=== PATIENT | female | born 1940 | race Caucasian/White ===

== ENCOUNTER → 2017-10-19 | Outpatient (CLI) | payer MEDICARE, OTHER ==
[2017-10-21 14:38] LABS: Stool Occult Bld Immuno 1 Negative (NEGATIVE); Stool Occult Bld Immuno 2 Negative (NEGATIVE); Stool Occult Bld Immuno 3 Negative (NEGATIVE)
== END ==
LOC: LAB SHORT 06:40
PROVIDERS: Physician Assistant Medical
DX: I10 Essential (primary) hypertension (principal); E78.4 Other hyperlipidemia; E11.51 Type 2 diabetes mellitus with diabetic peripheral angiopathy without gangrene; R53.83 Other fatigue; E03.8 Other specified hypothyroidism
CPT/HCPCS: 82274

== ENCOUNTER → 2017-12-18 | Outpatient (CLI) | payer MEDICARE, OTHER | LOC: LAB 18:08 → LAB SHORT 18:08 | DX: J40 Bronchitis, not specified as acute or chronic (principal) | CPT/HCPCS: 87070; 87205 ==

== ENCOUNTER 2021-09-30 22:13 | Inpatient (IN) | payer MEDICARE, OTHER ==
[~2021-09-30] VITALS: Ht 154.9 cm; Wt 65.8 kg
[2021-09-30 23:14] LABS: BASOPHILS ABSOLUTE AUTO 0.03 K/mm3 (0.00-0.23); BASOPHILS PERCENT AUTO 0 % (0-2); EOSINOPHILS ABSOLUTE AUTO 0.02 K/mm3 (0.00-0.68); EOSINOPHILS PERCENT AUTO 0 % (0-6); Hematocrit 34.7 % (33.0-51.0); Hemoglobin 11.6 g/dL (11.5-16.0); IMMATURE GRAN ABSOLUTE AUTO 0.04 K/mm3 (0.00-0.10); IMMATURE GRAN PERCENT AUTO 0 % (0-1); LYMPHOCYTES PERCENT AUTO 7 % (21-46); MONOCYTES ABSOLUTE AUTO 0.68 K/mm3 (0.16-1.47); MONOCYTES PERCENT AUTO 4 % (4-13); Mean Corpuscular HGB 26.5 pg (26.0-34.0); Mean Corpuscular HGB Conc 33.4 g/dL (31.5-36.5); Mean Corpuscular Volume 79 fL (80-100); Mean Platelet Volume 10.3 fL (9.1-12.4); NEUTROPHILS ABSOLUTE AUTO 14.62 K/mm3 (1.96-9.15); NEUTROPHILS PERCENT AUTO 89 % (41-73); Platelet Count 489 K/mm3 (150-400); RDW Coefficient Variation 13.3 % (11.7-14.2); RDW Standard Deviation 38.3 fL (35.1-46.3); Red Blood Cell Count 4.38 M/mm3 (3.80-5.20); White Blood Cell Count 16.49 K/mm3 (4.00-11.30)
[2021-09-30 23:38] LABS: Alanine Aminotransfer (ALT/SGP 13 U/L (12-78); Albumin, Blood 3.5 g/dL (3.4-5.0); Albumin/Globulin Ratio 0.9 (0.8-1.8); Alk Phos 97 U/L (50-136); Anion Gap 11 mmol/L (6-16); Aspartate Aminotrans (AST/SGOT 18 U/L (12-37); Bilirubin, Total 0.4 mg/dL (0.1-1.0); Blood Urea Nitrogen 13 mg/dL (8-24); Bun/Creatinine Ratio 15.8 (12.0-20.0); CO2, Blood 26 mmol/L (21-32); Calcium, Blood 9.5 mg/dL (8.5-10.1); Chloride, Blood 92 mmol/L (98-108); Creatinine, Blood 0.82 mg/dL (0.40-1.00); Glomerular Filtration Rate >60 (60-); Glucose, Blood 494 mg/dL (70-99); Potassium, Blood 3.6 mmol/L (3.5-5.5); Sodium, Blood 129 mmol/L (136-145); Total Protein, Blood 7.5 g/dL (6.4-8.2); Troponin I 0.587 ng/mL (0.000-0.040)
[2021-10-01] LABS: D-Dimer, Quantitative 0.35 mg/L FEU (0.00-0.52)
[2021-10-01 00:06] LABS: Anti-Xa UFH, PHA Monitoring <0.10 IU/mL; International Normalized Ratio 0.96; Prothrombin Time Results 10.1 Sec (9.7-11.5)
[2021-10-01] MEDS ORDERED: METO50 PO (00:33)
[2021-10-01] MEDS ORDERED: BASAGLAR K100 UNIT/3 SC (00:33)
[2021-10-01] MEDS ORDERED: METFORMIN HCL500 M2 PO (00:33)
[2021-10-01] MEDS ORDERED: EUTHYROX75 MC1 PO (00:33)
[2021-10-01] MEDS ORDERED: ATOR40TA PO (00:34)
[2021-10-01] MEDS ORDERED: XARELTO20 MG PO (00:34)
[2021-10-01] MEDS ORDERED: AMLODIPINE BESYL5 MG PO (00:34)
[2021-10-01] MEDS ORDERED: Namenda5 MG PO (00:34)
[2021-10-01] MEDS ORDERED: FUROSEMIDE20 MG PO (00:34)
[2021-10-01] MEDS ORDERED: PIOGLITAZONE HC15 MG PO (00:34)
[2021-10-01] MEDS ORDERED: HYDROCHLOROTH12.5 MG PO (00:35)
--- NOTE | 2021-10-01 02:32 | NUR ---
CALLED DR GOODWIN REGARDING CBG OF 419. FURTHER ORDERS ARE TO GIVE DOSE OF INSULIN ACCORDING TO SLIDING SCALE, NOW.
--- NOTE | 2021-10-01 03:23 | NUR ---
UPDATE PHYSICIAN NOTIFIED OF PT'SCBG AT 419. ORDERS PROVIDED, SEE EMAR. PT'S UPDATED PER PT REQUEST. WILL CONT TO MONITOR UNTIL REPORT GIVEN TO NIGHTSHIFT RN.
--- NOTE | 2021-10-01 03:27 | NUR ---
UPDATE PHYSICIAN NOTIFIED OF PT'S HIGH CBG LEVEL OF 419. ORDERS PROVIDED, SEE EMAR.PT'S UPDATED PER PT REQUEST.
--- NOTE | 2021-10-01 05:25 | NUR ---
SHIFT SUMMARY PT ALERT AND ORIENTED. CONFUSED AT TIMES. PT UNABLE TO RECALL MEDICAL HX OR MEDICATIONS. PT SBA TO COMMODE. HR STABLE. BP HYPERTENSIVE. STABLE AT THIS TIME SYSTOLIC BP UNDER 160. PT ABLE TO TURN SELF IN BED. HEPARIN GTT, SEE EMAR. PT REPORTS CP ONE TIME, MEDICATED, SEE EMAR. PT FROILAN STATES SHE HAS NO CP OR PRESSURE. CARDIOLOGY CONSULT PLACED. OXYGEN SATURATION MAINTAINED ABOVE 92% ON RA. COVID SWAB SENT TO LAB. BED ALARM IN PLACE FOR PT SAFETY. AT 0515 THIS RN ASSISTED PT TO COMMODE. L PUPIL A 6 AND NONREACTIVE TO LIGHT, R PUPIL A 3 AND NON-REACTIVE TO LIGHT. PHYSICIAN NOTIFIED, INSTRUCTED TO CONT TO MONITOR. PT REPORTS NO MCDONALD. NEURO CHECK PERFORMED AT PT HAS EQUAL MANAGER GOVERNMENT STRENGTH. WILL CONTINUE TO MONITOR UNTIL REPORT GIVEN TO DAYSHIFT RN.
[2021-10-01 06:47] LABS: Influenza A, PCR NEGATIVE (NEGATIVE); Influenza B, PCR NEGATIVE (NEGATIVE); Resp Syncytial Virus, PCR NEGATIVE (NEGATIVE)
[2021-10-01 06:51] LABS: SARS-Cov-2 (COVID-19) PCR, MMC POSITIVE (NEGATIVE)
[2021-10-01 07:26] LABS: BASOPHILS ABSOLUTE AUTO 0.04 K/mm3 (0.00-0.23); BASOPHILS PERCENT AUTO 0 % (0-2); EOSINOPHILS ABSOLUTE AUTO 0.08 K/mm3 (0.00-0.68); EOSINOPHILS PERCENT AUTO 1 % (0-6); Hematocrit 33.7 % (33.0-51.0); IMMATURE GRAN ABSOLUTE AUTO 0.03 K/mm3 (0.00-0.10); IMMATURE GRAN PERCENT AUTO 0 % (0-1); LYMPHOCYTES ABSOLUTE AUTO 2.76 K/mm3 (0.84-5.20); LYMPHOCYTES PERCENT AUTO 26 % (21-46); MONOCYTES ABSOLUTE AUTO 0.81 K/mm3 (0.16-1.47); MONOCYTES PERCENT AUTO 8 % (4-13); Mean Corpuscular HGB 26.8 pg (26.0-34.0); Mean Corpuscular HGB Conc 32.6 g/dL (31.5-36.5); Mean Corpuscular Volume 82 fL (80-100); NEUTROPHILS ABSOLUTE AUTO 7.04 K/mm3 (1.96-9.15); NEUTROPHILS PERCENT AUTO 65 % (41-73); Platelet Count 408 K/mm3 (150-400); RDW Coefficient Variation 13.4 % (11.7-14.2); RDW Standard Deviation 40.1 fL (35.1-46.3); White Blood Cell Count 10.76 K/mm3 (4.00-11.30)
[2021-10-01 08:05] LABS: Alanine Aminotransfer (ALT/SGP 15 U/L (12-78); Albumin, Blood 3.2 g/dL (3.4-5.0); Albumin/Globulin Ratio 0.9 (0.8-1.8); Alk Phos 89 U/L (50-136); Anion Gap 8 mmol/L (6-16); Aspartate Aminotrans (AST/SGOT 49 U/L (12-37); Bilirubin, Total 0.4 mg/dL (0.1-1.0); Blood Urea Nitrogen 12 mg/dL (8-24); Bun/Creatinine Ratio 16.8 (12.0-20.0); CO2, Blood 27 mmol/L (21-32); CPK Creatine Kinase 293 U/L (26-193); Calcium, Blood 9.6 mg/dL (8.5-10.1); Chloride, Blood 99 mmol/L (98-108); Creatinine, Blood 0.71 mg/dL (0.40-1.00); Globulin, Blood 3.6 g/dL (2.2-4.0); Glomerular Filtration Rate >60 (60-); Glucose, Blood 260 mg/dL (70-99); Potassium, Blood 3.5 mmol/L (3.5-5.5); Sodium, Blood 134 mmol/L (136-145); Total Protein, Blood 6.8 g/dL (6.4-8.2)
[2021-10-01 09:25] LABS: Creatine Kinase MB 29.2 ng/mL (0.0-3.6)
--- NOTE | 2021-10-01 10:23 | NUR ---
CARE NOTE DR MALHOTRA REACHED, ORDER GIVEN TO STOP HEPARIN DRIP. PHARMACY NOTIFIED THAT HEPARIN WAS TURNED OFF AT APPROX. 1020. WHEN IN ROOM PT CONTINUED TO DENY FEELING OF CHEST PAIN/PRESSURE. WILL CONTINUE TO MONITOR.
[2021-10-01 16:34] LABS: Troponin I 10.3 ng/mL (0.000-0.040)
[2021-10-01 16:51] LABS: Creatine Kinase MB 18.5 ng/mL (0.0-3.6); Creatine Kinase MB Index 7.9 (0.0-4.0)
--- NOTE | 2021-10-01 17:48 | NUR ---
SHIFT SUMMARY THIS AM PT WAS ALERT TO SELF, PLACE, TIME, AND SITUATION. SHE ALSO UTILIZED HER CALL LIGHT APPROPRIATELY AND ANSWERRED QUESTIONS APPROPRIATELY BUT THIS AFTERNOON PT WAS FOUND OUTSIDE OF HER ROOM BY CARLOS THOMAS RN. PATIENT HAD PULLED OUT HER IV AND STATED THAT SHE DID NOT KNOW WHERE SHE WAS. BED ALARM NOW ON. RIGHT PUPIL HAS REMAINED AT A 3 AND IS SLUGGISH, LEFT PUPIL IS A [address] GUADALUPE MADE AWARE. SPO2 MAINTAINS AT 100% VIA RA AND VITAL SIGNS STABLE. HEPARIN DRIP IS NOW INFUSING PER EMAR ORDERS AT 16 UNITS/KG/HR IN LEFT POWERGLIDE. SHE IS ABLE TO AMBULATE A SBA TO MANAGE LINES/CORDS TO BATHROOM. NO CARDIAC EVENTS NOTED AND PATIENT HAS CONTINUED TO DENY CHEST PAIN/PRESSURE. NO NAUSEA OR VOMITTING. THIS NURSE WAS MADE AWARE OF PLAN FOR ANGIO TOMORROW 10/02 AND WILL BE NPO AFTER MIDNIGHT WELL HEPARIN DRIP TURNED OFF AT 0500. THIS NURSE WILL PASS INFO TO ONCOMING NURSE WELL MAKE SURE ORDER IS IN EMAR. CALL LIGHT IS IN REACH. PT NOW EATING DINNER. WILL CONTINUE TO MONITOR UNTIL REPORT GIVEN.
--- NOTE | 2021-10-01 21:43 | NUR ---
UPDATE AT BEGINNING OF SHIFT PT OUT OF BED. ATTEMPTING TO PULL OUT CARTRIDGE FROM PUMP WITH HEPARIN GTT RUNNING. PT PULLING AT LINES. PT NOT DIRECTABLE. CONFUSED ON LOCATION AND WHY SHE IS IN HOSPITAL. PHYSICIAN NOTIFIED. ORDERS FOR ATIVAN, SEE EMAR. PT BECAME COMBATIVE HITTING SPORTS ATHLETIC TRAINER AFTER SECOND DOSE OF ATIVAN. PHYSICIAN NOTIFIED BY SPECIAL EDUCATION EDUCATIONAL ASSISTANT. MEDICATIONS ORDERED, SEE EMAR. PT REMAINS AGGITATED AT THIS TIME BUT IN BED WITH BUE AND BLE SOFT RESTRAINTS. WILL CONT TO MONITOR AND INFORM PHYSICIAN IF PT REMAINS AGGITATED.
--- NOTE | 2021-10-01 22:53 | NUR ---
UPDATE PT NOW RESTING COMFORTABLY IN BED. VSS.
[2021-10-02 04:35] LABS: Hemoglobin 10.3 g/dL (11.5-16.0); Mean Platelet Volume 10.4 fL (9.1-12.4); Platelet Count 392 K/mm3 (150-400)
--- NOTE | 2021-10-02 05:09 | NUR ---
UPDATE PT'S HEPARIN GTT TURNED OFF AT 0500.
--- NOTE | 2021-10-02 05:12 | NUR ---
SHIFT SUMMARY PT CONFUSED. ALERT TO SELF. UNSURE OF LOCATION, YEAR. PT AGGITATED AND HITTING AT STAFF AT BEGINNIGN OF SHIFT, SEE PREVIOUS NOTES. PT NOT ABLE TO BE RE-DIRECTED. PT CURRENLTY IN 4 POINT SOFT RESTRAINTS FOR PT AND STAFF SAFETY. PT MEDICATED FOR AGGITATION. SEE EHR AND EMAR. PT'S VITAL SIGNS STABLE. HR STABLE. BP STABLE. MAP REMAINED ABOVE 65. OXYGEN SATURATION MAINTAINED ABOVE 95% ON RA. PT BECAME AGGITATED TOWARDS END OF SHIFT STATING SHE NEEDED TO USE BATHROOM. THIS RN AND MANAGER COUNTRY ATTEMPTED TO HAVE PT USE BEDPAN, PT REFUSED. THIS RN, 2 OTHER RN'S AND ONE MANAGER COUNTRY ASSISTED PT OUT OF BED TO USE COMMODE. PT DID NOT HIT AT STAFF DURING THIS TIME AND WAS DIRECTIBLE. PT BECAME CONFUSED AFTER ASSISTANCE UP TO COMMODE AND BEGAN PULLING AT POWERGLIDE, RESTRAINTS CURRENLTY IN PLACE. PT CURRENTLY SLEEPING. HEPARIN GITT TURNED OFF AT 0500. PT NPO SINCE MIDNIGHT. NO CP OR PRESSURE REPORTED. SEE RESTRAINT DOCUMENTATION. WILL CONTINUE TO MONITOR UNTIL REPORT GIVEN TO DAYSHIFT RN.
--- NOTE | 2021-10-02 07:49 | NUR ---
Out of bed independently; pulled all but one restraint off and was sitting on side of bed, bed alarm going off. Sitting on toilet, with studio operations engineer in charge at her side. Pt states "You may not like me once you get to know me. I'm just sick of all these tubes and wires."
--- NOTE | 2021-10-02 08:35 | NUR ---
Pt was taken by bed by COLBY Jackson to the [facility] for angiogram.
--- NOTE | 2021-10-02 10:27 | NUR ---
Pt returned from laborer wharf, Rafael and Renetta , RNs accompanying her. She awakens easily, falls back to sleep readily, during my conversation with her. Right groin site is without bleeding, bruising, or swelling. Distal pulses are readily palpable, bilaterally, and both feet are equally pink, warm and dry with brisk capillary refill. Pt is lying flat in the bed, respirations are even and ulabored, spo2 100% on room air.
--- NOTE | 2021-10-02 11:12 | NUR ---
Assisted to bedpan to void. She is cooperative, pleasant, and was able to void. Pericare completed, new clean layne pad placed and pt was repositioned to comfort, all while keeping the right leg extended, no flexion. Right groin site remains unchanged from previous assessments.
--- NOTE | 2021-10-02 12:22 | NUR ---
PT HAS SET off bed alarm three times since return from track laborer. She cannot remember to keep her right leg straight, and she is not using her call light to call for assistance with repositioning. Attempted to OOB independently to pee; she is having difficulty she states also with using the bedpan. States that if she could sit up she would be able to void. Multiple times she has been reoriented, reminded, and each time she is pleasant with the reminders, but cannot recall previous instructions.
--- NOTE | 2021-10-02 12:24 | NUR ---
Given pain medication for relief of lower back pain, repositioned 4 times since return from veterinary laboratory diagnostician. Right groin site remains without bleeding, swelling, bruising nor evidence of hematoma.
--- NOTE | 2021-10-02 12:53 | NUR ---
Comfort care visit - Two RNs at bedside to transfer pt to bedpan. Pt had just been given Roxanol prn pain. RN also notes anxiety that may benefit from longer acting antianxiety agent. Pt has 0.5-1.0 mg Ativan ordered IV yesterday. PO Ativan added to comfort care order set per VO. Discussed medication change, other medications/tx/interventions with RN prior to my visit also. I did not stay for longer visit due to bedpan use. Bedside RN remained in room with pt when I left.
--- NOTE | 2021-10-02 13:45 | NUR ---
Telephone report given to COLBY Oconnor. PT will be moved to 353 after the right groin site access is recovered.
--- NOTE | 2021-10-02 13:58 | NUR ---
Pt states that her lower back pain is "better." She was able to void on the bedpan with the digital marketing analyst assisting her. She was assisted to a left side lying position at this time, and right groin site verified to be without evidence of bleeding or hematoma. NO abdominal pain, and denies pain to gentle palpation of the abdomen. Vital signs are stable.
--- NOTE | 2021-10-02 14:57 | NUR ---
PT stated that she needed to void. Assisted by PCT as well as COLBY Laura to sit up slowly, and then to use the bedside commode. AFterwards, she was transferred to the medical floor.
--- NOTE | 2021-10-02 15:37 | NUR ---
PATIENT ARRIVED TO [facility] FLOOR AT 1500. ORIENTED TO UNIT. PATIENT AO X 4 ON ARRIVAL. DENIES ANY PAIN OR DISCOMFORT AT THIS TIME. CALL LIGHT IN REACH. DENIES ANY WANTS OR NEEDS AT THIS TIME. QUE YOUNG RN
--- NOTE | 2021-10-02 17:46 | NUR ---
Palliative Care case conf note: Message received from , requesting call to Heather parson. I had two long conversations with Heather desai: plans for hospice, process and Care Management coordination of d/c plan. Pt lives in [place]. No preference of agency known. Time spent listening and supporting. VM left for Arnold NOLAND regarding daughter's desire to coordinate dc plan with her tomorrow. Gails # provided in hospice referral entered per VO of Dr Newton. Dk will check with her siblings and step dad on agency of choice between two agencies that serve their area. Pt has previously undiagnosed dementia/memory loss per dk and this has complicated her self care for dx of CAD, DM that she previously had manged well. 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
--- NOTE | 2021-10-02 17:54 | NUR ---
SHIFT SUMMARY; PATIENT IS MOVED TO ROOM 351 ROOM SHE WAS IN 353 HAS NO WORKING CAMERA AND KAILEY GETS OUT OF BED REPEATEDLY AND IS A FALL RISK. SHE HAS A FEMORAL SITE AFTER HER ANGIO THAT HAS NO CLOSURE DEVICE. PATIENT IS REMINDED AND REORIENTED TO ROOM EACH TIME SHE GETS OUT OF BED. SHE IS IN A COVID ROOM AND THEREFORE IN ISOLATION PRECAUTIONS. HER CBG THIS IVÁN IS 206 AND SHE IS MEDICATED WITH 2 UNITS INSULIN. QUE YOUNG RN
--- NOTE | 2021-10-02 21:25 | NUR ---
PT RESTING IN BED. TOOK MEDS AND INSULIN WITHOUT DIFFICULTY. CONTINUE POC.
--- NOTE | 2021-10-02 21:52 | NUR ---
PT NOW IN BED WITH AIYANA VEST IN PLACE. SHE REMOVED VEST BY PULLING IT OVER HER HEAD TWICE. WILL CONTINUE TO MONITOR.
--- NOTE | 2021-10-03 06:01 | NUR ---
PT RESTING IN BED. AIYANA IN PLACE. SHE TRIED TO SLIP OUT AND UNTIE VEST MULTIPLE TIMES THROUGHOUT SHIFT, WANTING TO LEAVE. SHE IS ALERT TO SELF ONLY. REMAINS IN COVID ISOLATION. PLAN TO D/C HOME WITH HOSPICE TODAY. TOLERATING DIET. DRSG TO R FEMORAL SITE C/D/I. POWERGLIDE TO LEFT UPPER ARM IN PLACE. CONTINUE POC.
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
--- NOTE | 2021-10-03 16:37 | NUR ---
Received referral from nurse attending ambulatory care (Arnold Gordon) on 10/03/2021. Patient is to discharge with orders for hospice and family elected [facility]. Gathered supporting documentation for referral (face sheet, labs, imaging, progress notes, palliative care note, and H&P) and sent to [facility] license issuer (Matheus Stokes) for review of hospice appropriateness and ability to accept patient onto service post discharge. Will await further information from hospice license issuer regarding the above. Vicki Mark Referral Liaison
--- NOTE | 2021-10-03 17:21 | NUR ---
RESTING QUIT IN BED. DENIES ANY CHEST PAIN. CALL LIGHT IN REACH.
--- NOTE | 2021-10-03 17:30 | NUR ---
SUMMARY- PT ALERT AND ORIENTED THIS AM- PROGRESSIVELY MORE CONFUSED T/O THE DAY. DENIES CHEST PAIN. ESCELATING ANXIETY, FREQ REASSURANCE. PT UP IN CHAIR MOST OF THE DAY. CHAIR ALARM SET AND GOING OFF FREQ BUT PT HAS STEADY GAIT AND GOOD STRENGTH EXCEPT A OCC MISSTEP. KARENA REDIRECITON. KIMMY GOLDJESSEE CALLED 1630 AND ASKED ABOUT DISCHARGE, ON HOLD FOR HOSPICE TO BE SET UP IN THE AM. WAYNE DOYLE TO COORDINATE. NOTIFIED DR GUADALUPE OF DELAY IN DISCHARGE. BLOOD SUGARS IN 200'S, COVERED WITH SSRI. TOLERATING ADA AND TAKING IN FLUIDS. MELIZA AND DAUGHTER RON READY TO RECEIVE PT HOME TOMORROW.
--- NOTE | 2021-10-03 18:52 | NUR ---
Spoke with physician and family on her plan of care. pt to discharge with hospice this week. will continue to follow.
--- NOTE | 2021-10-04 03:58 | NUR ---
PT RESTING IN BED. UP ABOUT EVERY 2 HOURS TO URINATE. WHEN SHE AWAKES, SHE THINKS SHE IS AT HOME. REORIENTED. REMAINS IN ISOLATION; PT WAS POSITIVE FOR COVID 2 WEEKS BEFORE ADMISSION. POWERGLIDE IN PLACE TO LEFT ARM. PLAN TO D/C HOME WITH HOSPICE TODAY. NO PRN MEDS GIVEN THIS SHIFT. CONTINUE POC.
--- NOTE | 2021-10-04 07:59 | NUR ---
COLBY boston handoff of patient care from COLBY Mirza Patient bed alarm came on as she got out of the bed. Patient stated, "I have to use the bathroom, like now!" Patient was assisted to the bathroom by staff. She is lying back in bed, she had no more requests
--- NOTE | 2021-10-04 09:02 | NUR ---
Received notification from [facility] agriculturist (Matheus Stokes) that patient is hospice appropriate and able to be accepted onto service post discharge. Will attempt to meet with patient and family today to further discuss the above. Will continue to monitor and follow for discharge. Vicki Mark Referral Liaison
[2021-10-04] MEDS ORDERED: ASPI81CH PO (12:22)
[2021-10-04] MEDS ORDERED: CLOP75 PO (12:23)
[2021-10-04] MEDS ORDERED: LORA1 PO (12:24)
[2021-10-04] MEDS ORDERED: MORP20L PO (12:34)
[2021-10-04] MEDS ORDERED: NITR.4SL SL (12:35)
--- NOTE | 2021-10-04 13:34 | NUR ---
Patient was discharged to home with Hospice Care. Patient family was at bedside when senior care assistant came to speak with the patient. RN reviewed discharge instructions, medications with family.
--- NOTE | 2021-10-04 17:18 | NUR ---
Met with patient, patient's (Albino Mooney), and patient's daughter (Heather Hines) to further discuss hospice services and the election of [facility]. Patient and family are agreeable to the above, however, prior to meeting patient's daughter states that due patient's dementia and confusion the family would like this advertising writer to not use the word hospice currently around patient. Discussed what hospice is (reserved for patients with a terminal diagnosis with life expectancy of 6 months or less). Discussed that some patients exceed the 6 months expectancy and stay on service and some patients stabilize and come off hospice. Patient and family verbalized understanding of the above. Discussed with patient and family that hospice service focuses on quality of life at the end of life and that rather than measuring the quantity of days, the quality of those days would be measured. Discussed with patient and family that with hospice service the goal would be to keep the patient out of the hospital and comfortable by managing symptoms at home. Patient and family verbalized understanding. Discussed the people, prescriptions, and equipment of hospice. People- discussed the team of people and their roles (RNs, chaplains, therapists, LCSWs, CNAs, and volunteers) that would be there to support not only the patient but also their family during this time. Explained to the patient and family that the team would be custom tailored to the patient and family's needs during this time. Patient and family verbalized understanding. Prescriptions- discussed that we utilize a mail order pharmacy ([facility]) to provide medications related to the hospice diagnosis and for symptom management. All other medications that patient chose to stay on would be patient's and/or patient's family's responsibility to provide and pay for. Patient and family verbalized understanding. Discussed that upon discharge patient would be given three prescriptions, one for morphine 20mg/mL #30mL (0.25mL - 1mL PO/SL Q1H PRN SOB/pain), one for lorazepam 0.5mg #20 (1 - 2 PO Q4H PRN anxiety), and one for hyoscyamine 0.125mg SL tablets #30 (1 SL Q2H PRN secretions). Explained to the patient and family that as patient would not yet be admitted to hospice service at the time of discharge those prescriptions would be patient/patient's family's responsibility to fill and pay for. Patient and family verbalized understanding. Equipment- discussed with patient and family that [facility] to provide DME such as hospital beds, commodes, etc. to patient. Patient and family verbalized understanding. At this time patient has no DME needs and would like the admitting nurse to assess for DME needs and place order. Discussed with patient and family that once patient was admitted onto hospice services the goal would be for them to contact us ([facility]) over contacting 911 or presenting back to the hospital/ED. Patient and family verbalized understanding. Discussed the tentative discharge plans for today- 10/04/2021 as soon as possible. At this time patient's family wishes to transport patient home in a private vehicle so this advertising writer will not be arranging transportation for patient. Offered a chance for patient and family to ask questions regarding the above of which there were none. Will continue to monitor and follow as appropriate for discharge. Vicki Mark Referral Liaison
--- NOTE | 2021-10-04 17:21 | NUR ---
Late Entry from 10/04/2021 at 1215: Patient is to discharge as soon as possible with orders for hospice. Patient is to be transported home via private vehicle. Notified nurse rn homecare (Arnold Gordon), ACC (Adilene Verma), Charge RNs (Sharifa Samson and Leilani An), and bedside RN (Carlos Mcgregor) of the above. All are agreeable to the above. Discharge orders have already been entered by hospitalist (Dr. Newton) Provided hard copy prescriptions for morphine and lorazepam to patient's daughter (Heather Hines) on - 10/04/2021. Faxed copies of discharge order and med list to [facility] band ripsaw operator. No further interventions required. Vicki Mark Referral Liaison
== END 2021-10-04 13:32 | disposition hospice, home (50) | DRG 280 ==
LOC: ER 22:13 → PCU 22:14 → ER 10-01 00:22 → PCU 10-01 00:22 → MEDS 10-02 14:49 → ENPENDDIS 10-03 17:16 → MEDS 10-04 13:32
PROVIDERS: Emergency Medicine; ADMIT Internal Medicine
PROC: 8E0ZXY6 Isolation (ICD-10-PCS; principal; 2021-10-01)
PROC: 4A023N7 Measurement of Cardiac Sampling and Pressure, Left Heart, Percutaneous Approach (ICD-10-PCS; 2021-10-02)
PROC: B2111ZZ Fluoroscopy of Multiple Coronary Arteries using Low Osmolar Contrast (ICD-10-PCS; 2021-10-02)
DX: I21.4 Non-ST elevation (NSTEMI) myocardial infarction (principal); U07.1 COVID-19; I35.0 Nonrheumatic aortic (valve) stenosis; E78.5 Hyperlipidemia, unspecified; E11.65 Type 2 diabetes mellitus with hyperglycemia; I25.10 Atherosclerotic heart disease of native coronary artery without angina pectoris; I10 Essential (primary) hypertension; E03.9 Hypothyroidism, unspecified; Z53.20 Procedure and treatment not carried out because of patient's decision for unspecified reasons; F03.90 Unspecified dementia, unspecified severity, without behavioral disturbance, psychotic disturbance, mood disturbance, and anxiety; Z88.8 Allergy status to other drugs, medicaments and biological substances; Z79.02 Long term (current) use of antithrombotics/antiplatelets; Z79.82 Long term (current) use of aspirin; Z79.899 Other long term (current) drug therapy
CPT/HCPCS: 0241U; 36415; 71045; 76937; 80053; 82550; 82553; 82947; 83036; 83880; 84484; 85014; 85018; 85025; 85049; 85379; 85520; 85610; 85730; 86850; 86900; 86901; 93005; 93010; 93306; 93454; 94760; 96374; 96376; 99152; 99153; 99285-25; A9270; C1751; C1769; C1894; G0378; J1200; J1630; J1644; J1815; J2060; J2250; J2270; J3010; J7030; J7050; Q9967